=== PATIENT | male | born 1985 | race African-American/Black ===

== ENCOUNTER 2023-01-25 22:56 | Emergency (ER) | payer BC, SELFPAY ==
[2023-01-25 23:04] VITALS: BP 168/100; PULSE 70; RESP 18; TEMP 36.9; O2SAT 98
--- NOTE | 2023-01-26 00:38 | ED.DENTAL ---
HPI - Dental/Oral General Chief complaint: Dental/Oral Stated complaint: dental pain Time Seen by Provider: 01/26/23 00:10 Source: patient Mode of arrival: ambulatory Limitations: no limitations History of Present Illness HPI Narrative: Patient presents to the ER for toothache present today. Reports a broken tooth that has been painful. He does report he is scheduled to see an oral surgeon and already on antibiotics. He presents tonight for some pain relief. Denies fevers. MD Complaint: tooth pain Location: Tooth # (16) Related Data Allergies Allergy/AdvReac Type Severity Reaction Status Date / Time No Known Allergies Allergy Verified 01/25/23 23:34 Review of Systems Review of Systems: CONSTITUTIONAL: Denies fever ENT: Reports dentalgia All systems reviewed & are unremarkable except as noted in HPI and below PMFSH Past Medical History Medical History (Updated 01/26/23 @ 00:43 by Brionna Salazar PA-C) No active medical problems Social History Social History (Updated 01/26/23 @ 00:40 by Brionna Salazar PA-C) Substance use: current Substance use type: marijuana Exam Narrative: GENERAL: Well-appearing, well-nourished, and in no acute distress. HEAD: Normocephalic, atraumatic. EYES: EOMI. ENT: Nares clear, no rhinorrhea or epistaxis. Mucous membranes moist. Oropharynx without tonsillar hypertrophy exudate or other lesions. Tooth #16 is fractured and tender to palpation without surrounding edema or fluctuance to suggest abscess NECK: Supple. No adenopathy or masses. CHEST: No respiratory distress. HEART: Regular rate EXTREMITIES: Normal range of motion. No edema. SKIN: Warm, dry, no rash. NEURO: No focal deficits. Alert and oriented x3. PSYCH: Normal mood and affect Course Vital Signs Vital signs: Vital Signs Temperature 98.4 F 01/25/23 23:04 Pulse Rate 70 01/25/23 23:04 Respiratory Rate 18 01/25/23 23:04 Blood Pressure 168/100 H 01/25/23 23:04 Pulse Oximetry 98 01/25/23 23:04 Oxygen Delivery Room Air 01/25/23 23:04 Temperature 98.4 F 01/25/23 23:04 Pulse Rate 70 01/25/23 23:04 Respiratory Rate 18 01/25/23 23:04 Blood Pressure 168/100 H 01/25/23 23:04 Pulse Oximetry 98 01/25/23 23:04 Oxygen Delivery Room Air 01/25/23 23:04 MDM - Dental/Oral MDM Narrative Medical decision making narrative: Patient presents emergency department for dentalgia present today. Does report he is already on oral antibiotics. He presented for some pain relief tonight. He is afebrile and nontoxic-appearing. There is no evidence for an abscess of the tooth on exam. Given a dose of Toradol and Tylenol for pain. Instructed to continue his oral antibiotics and follow-up with his oral surgeon. He was given warnings to return to the ER Differential Diagnosis Differential diagnosis: Likely dental caries, toothache, dental abscess and fracture of tooth Critical Care Time Critical Care Time Critical Care Time: No Discharge Plan Discharge Clinical Impression: Toothache Patient Disposition: Home, Self-Care Condition: Stable Instructions: Toothache (ED) Additional Instructions: Return to the Emergency Department if you experience fever >101, increasing swelling and redness of your tooth, or any other symptoms that are concerning to you Take antibiotic as prescribed. Tylenol or Ibuprofen as needed for pain. Follow up with your dentist Follow-up/Referrals: PHYSICIAN NOT ON STAFF,NONSTAFF [Primary Care Provider] -
[2023-01-26] MEDS: ACETAMINOPHEN 500 MG TABLET 1000 MG PO (00:58)
[2023-01-26] MEDS: KETOROLAC 30 MG/ML VIAL (*BKC) IM (01:00)
== END 2023-01-26 01:06 | disposition home or self-care (01) ==
PROVIDERS: Emergency Provider Physician Assistant
DX: K08.89 Other specified disorders of teeth and supporting structures (principal)
CPT/HCPCS: 96372; 99283; A9270; J1885